=== PATIENT | female | born 1940 | race Caucasian/White ===

== ENCOUNTER 2017-02-08 13:02 | Outpatient (CLI) | payer OTHER | END 2017-02-08 19:19 | disposition home or self-care (01) | LOC: SUS 13:02 | PROVIDERS: ATTEND Family Medicine | DX: I73.9 Peripheral vascular disease, unspecified (principal); I70.90 Unspecified atherosclerosis | CPT/HCPCS: 93923 ==

== ENCOUNTER 2017-11-08 12:18 | Outpatient (CLI) | payer OTHER | END 2017-11-08 19:11 | disposition home or self-care (01) | LOC: SMA 12:18 | PROVIDERS: ATTEND Family Medicine | DX: Z12.31 Encounter for screening mammogram for malignant neoplasm of breast (principal); J44.9 Chronic obstructive pulmonary disease, unspecified; I25.10 Atherosclerotic heart disease of native coronary artery without angina pectoris | CPT/HCPCS: 71046-TC; 77067 ==